=== PATIENT | male | born 1965 | race African-American/Black ===

== ENCOUNTER 2020-02-24 13:39 | Emergency (ER) | payer SELFPAY ==
[~2020-02-24] VITALS: Ht 172.7 cm; Wt 92.0 kg
[2020-02-24 14:05] VITALS: BP 192/117
[2020-02-24] MEDS ORDERED: LISINOPRIL 5MG TABLET PO ONE (14:15)
[2020-02-24] MEDS ORDERED: HYDROCHLOROTHIAZIDE 25MG TABLET PO ONE (14:15)
== END 2020-02-24 15:06 | disposition home or self-care (01) ==
LOC: ER 13:55
DX: I10 Essential (primary) hypertension (principal); F17.290 Nicotine dependence, other tobacco product, uncomplicated
CPT/HCPCS: 99283; 99406

== ENCOUNTER 2020-06-18 18:14 | Emergency (ER) | payer MEDICAID ==
[~2020-06-18] VITALS: Ht 177.8 cm; Wt 100.0 kg
[2020-06-18 18:19] VITALS: BP 193/125
== END 2020-06-18 20:34 | disposition left against medical advice (07) ==
LOC: ER 18:14
DX: Z53.21 Procedure and treatment not carried out due to patient leaving prior to being seen by health care provider (principal)